=== PATIENT | female | born 1980 | race Caucasian/White ===

== ENCOUNTER → 2016-07-26 | Day surgery (SDC) | payer BC ==
[~2016-07-26] MED LIST: LIDOCAINE 1% INJ-PF (10 MG/ML) 30 ML SDV ONE
== END ==
LOC: RAD 13:55
PROVIDERS: ATTEND Physician Assistant
PROC: BP08ZZZ Plain Radiography of Right Shoulder (ICD-10-PCS; principal; 2016-07-26)
DX: S40.021A Contusion of right upper arm, initial encounter (principal); X58.XXXA Exposure to other specified factors, initial encounter; M25.511 Pain in right shoulder
CPT/HCPCS: 73222; 73040; 77002; A9576; J3490